=== PATIENT | male | born 1985 ===

== ENCOUNTER 2019-05-21 18:29 | Outpatient (CLI) | payer OTHER | END 2019-05-21 19:00 | disposition home or self-care (01) | LOC: RAD 18:29 | DX: S60.921A Unspecified superficial injury of right hand, initial encounter (principal); S62.316A Displaced fracture of base of fifth metacarpal bone, right hand, initial encounter for closed fracture ==

== ENCOUNTER 2020-05-15 13:43 | Emergency (ER) | payer OTHER ==
[~2020-05-15] VITALS: Ht 172.7 cm; Wt 94.3 kg
== END 2020-05-15 18:19 | disposition home or self-care (01) ==
LOC: ER 13:43
DX: R10.31 Right lower quadrant pain (principal); Z20.822 Contact with and (suspected) exposure to COVID-19